=== PATIENT | female | born 1970 | race African-American/Black ===

== ENCOUNTER 2016-12-28 23:21 | Emergency (ER) | payer OTHER ==
--- NOTE | 2016-12-28 23:32 | EDPHY ---
H & P Stated Complaint: midline abd pain x24 hr, vomiting HPI/ROS: HPI CHIEF COMPLAINT: Abdominal pain HISTORY OF PRESENT ILLNESS: This patient very pleasant 46-year-old female no significant medical history does not take any daily medications she presents emergency room with right lower quadrant abdominal pain. Pain started 24 hours ago. It has progressively gotten worse she has had nausea with 3 episodes of nonbilious nonbloody vomiting. No diarrhea. No fever. No urinary symptoms or back pain. Pain is now focally located right lower quadrant however she does tell me that it was localized throughout her abdomen. Dull ache. 10 in 10 at this time. Past Medical History: No significant medical history Past Surgical History: No significant surgical history Social History: Denies daily use of drugs alcohol tobacco products Family History: Noncontributory ROS REVIEW OF SYSTEMS: A comprehensive 10 point review of systems is otherwise negative aside from elements mentioned in the history of present illness. Exam Constitutional triage nursing summary reviewed, vital signs reviewed, awake/ alert. Eyes normal conjunctivae and sclera, EOMI, PERRLA. HENT normal inspection, atraumatic, moist mucus membranes, no epistaxis, neck supple/ no meningismus, no raccoon eyes. Respiratory clear to auscultation bilaterally, normal breath sounds, no respiratory distress, no wheezing. Cardiovascular rate normal, regular rhythm, no murmur, no edema, distal pulses normal. Gastrointestinal soft, mild tender palpation in the right lower quadrant, no rebound, no guarding, normal bowel sounds, no distension, no pulsatile mass. Genitourinary no CVA tenderness. Musculoskeletal no midline vertebral tenderness, full range of motion, no calf swelling, no tenderness of extremities, no meningismus, good pulses, neurovascularly intact. Skin pink, warm, & dry, no rash, skin atraumatic. Neurologic awake, alert and oriented x 3, AAOx3, moves all 4 extremities equally, motor intact, sensory intact, CN II-XII intact, normal cerebellar, normal vision, normal speech. Psychiatric normal mood/affect. Heme/Lymph/Immune no lymphadenopathy. Differential diagnosis includes but is not limited to and in no particular order : Bowel obstruction, appendicitis, gallbladder disease, diverticulitis, colitis , enteritis, perforated viscus, gastritis, GERD, esophagitis, urinary tract infection, pyelonephritis, kidney stones Medical Decision Making: Plan for this patient she will have an IV established obtain blood work should be gently hydrated normal saline, patient received 1 mg IV Dilaudid for pain control, 4 mg IV Zofran for nausea, she will need a CT scan abdomen pelvis with IV contrast rule out acute appendicitis. Re-evaluation: CT scan of the abdomen pelvis with IV contrast. The results of the study are most likely ruptured right ovarian cyst, unable to visualize the appendix, there is no right lower quadrant periappendiceal inflammation or significant inflammation right lower quadrant. The study was read by Dr. Villalpando I viewed the images myself on the PACS system. 0120AM: I did re-evaluate this patient she is resting comfortably she does not want any further pain medicine. 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 Patient getting a pelvic ultrasound to confirm right ovarian cyst. Unable to visualize appendix on CT scan however patient does not have a fever no high white count. Plan for patient is to neck is have a pelvic ultrasound. I did update her on her CT results and that we cannot visualize her appendix however reduce EF fibroid and a most likely complex ruptured ovarian cyst. She is agreeable for pelvic ultrasound. Ultrasound of the pelvis The results of the study are small right ovarian cyst good blood flow to both ovaries I discussed the results of this study with the radiologist Dr. Villalpando 0322AM: Re-examination at this time this patient is resting comfortably no vomiting no fever no guarding\or peritoneal signs. Re-examination her abdomen is soft mild tenderness. She would like to go home. I explained that we did a CAT scan blood work and ultrasound did not visualize her appendix. She does have pain diffusely throughout her abdomen improved now after IV pain medicine here in emergency room also focal tenderness no right lower quadrant unable to visualize the appendix on the CT scan. Do not see right lower quadrant uche appendiceal or right lower quadrant inflammation. She does not have a fever does not have a high white count. I think on appendicitis is unlikely however due to the pain in this area and CT scan unable to visualize her appendix an ultrasound shows a very small right ovarian cyst that I do not feels causing her abdominal pain I explained that I will allow her to go home however if she develops worsening abdominal pain next 12 hours she needs return immediately to the emergency room this includes worsening vomiting, fever, vomiting. I also explained I would like to see her back for abdominal pain recheck in 12-24 hour she understands to return to the emergency room for abdominal pain recheck the other options admitting her overnight for observation however she would like to go home. She does understand me in the emergency room tomorrow night at 10:00 p.m. and she is more welcome to come back for abdominal pain recheck to see me. If worsening abdominal pain fever vomiting she needs return sooner she understands. Source: Patient - Personal History LMP (Females 10-55): 8-14 Days Ago Current Tetanus/Diphtheria Vaccine: Unsure Current Tetanus Diphtheria and Acellular Pertussis (TDAP): Unsure - Medical/Surgical History Hx Asthma: No Hx Chronic Respiratory Disease: No Hx Diabetes: No Hx Cardiac Disease: No Hx Renal Disease: No Hx Cirrhosis: No Hx Alcoholism: No Hx HIV/AIDS: No Hx Splenectomy or Spleen Trauma: No Other PMH: denies - Social History Smoking Status: Never smoked Constitutional: Initial Vital Signs Temperature (C) 36.8 C 12/28/16 23:22 Heart Rate 88 12/28/16 23:22 Respiratory Rate 18 12/28/16 23:22 Blood Pressure 113/74 12/28/16 23:22 O2 Sat (%) 97 12/28/16 23:22 O2 Delivery Mode Room Air Allergies/Adverse Reactions: No Known Allergies Allergy (Unverified 09/28/14 19:29) Home Medications: Medication Instructions Recorded Hydrocodone/APAP 5/325 [[place]io 1 - 2 tab PO Q4H PRN #10 tab 12/29/16 5/325] Medical Decision Making - Data Points Laboratory Results: Laboratory Results 12/28/16 23:35 12/28/16 23:35 12/29/16 12/28/16 12/28/16 01:30 23:35 23:35 WBC RBC Hgb Hct MCV MCH MCHC RDW Plt Count MPV Neut % (Auto) Lymph % (Auto) [place] % (Auto) Eos % (Auto) Baso % (Auto) Nucleat RBC Rel Count Absolute Neuts (auto) Absolute Lymphs (auto) Absolute Monos (auto) Absolute Eos (auto) Absolute Basos (auto) Absolute Nucleated RBC Immature Gran % Immature Gran # PT INR APTT VBG Lactic Acid Sodium 139 mEq/L mEq/L (134-144) Potassium 4.2 mEq/L mEq/L (3.5-5.2) Chloride 104 mEq/L mEq/L (97-110) Carbon Dioxide 22 mEq/l mEq/l (22-31) Anion Gap 13 mEq/L mEq/L (8-16) BUN 7 mg/dL mg/dL (7-23) Creatinine 0.8 mg/dL mg/dL (0.6-1.0) Estimated GFR > 60 Glucose 121 mg/dL H mg/dL (70-100) Calcium 9.7 mg/dL mg/dL (8.5-10.4) Total Bilirubin 1.4 mg/dL mg/dL (0.1-1.4) Conjugated Bilirubin 0.4 mg/dL mg/dL (0.0-0.5) Unconjugated Bilirubin 1.0 mg/dL mg/dL (0.0-1.1) AST 20 IU/L IU/L (14-46) ALT 25 IU/L IU/L (9-52) Alkaline Phosphatase 85 IU/L IU/L (38-126) Total Protein 8.4 g/dL H g/dL (6.3-8.2) Albumin 4.6 g/dL g/dL (3.5-5.0) Lipase 51.0 IU/L IU/L (23-300) Beta HCG, Qual NEGATIVE Urine Color YELLOW Urine Appearance CLEAR Urine pH 5.0 (5.0-7.5) Ur Specific [place] > 1.035 H (1.002-1.030) Urine Protein NEGATIVE (NEGATIVE) Urine Ketones 1+ H (NEGATIVE) Urine Blood 1+ H (NEGATIVE) Urine Nitrate NEGATIVE (NEGATIVE) Urine Bilirubin NEGATIVE (NEGATIVE) Urine Urobilinogen NEGATIVE EU EU (0.2-1.0) Ur Leukocyte Esterase NEGATIVE (NEGATIVE) Urine RBC 3-5 /hpf H /hpf (0-3) Urine WBC 1-3 /hpf /hpf (0-3) Ur Epithelial Cells TRACE /lpf /lpf (NONE-1+) Urine Mucus 1+ /lpf /lpf (NONE-1+) Ur Culture Indicated? NOT INDICATED (NI) Urine Glucose NEGATIVE (NEGATIVE) 12/28/16 12/28/16 12/28/16 23:35 23:35 23:35 WBC 9.17 10^3/uL 10^3/uL (3.80-9.50) RBC 5.02 10^6/uL 10^6/uL (4.18-5.33) Hgb 15.1 g/dL g/dL (12.6-16.3) Hct 44.2 % % (38.0-47.0) MCV 88.0 fL fL (81.5-99.8) MCH 30.1 pg pg (27.9-34.1) MCHC 34.2 g/dL g/dL (32.4-36.7) RDW 14.5 % % (11.5-15.2) Plt Count 344 10^3/uL 10^3/uL (150-400) MPV 10.1 fL fL (8.7-11.7) Neut % (Auto) 75.9 % H % (39.3-74.2) Lymph % (Auto) 14.5 % L % (15.0-45.0) [place] % (Auto) 8.8 % % (4.5-13.0) Eos % (Auto) 0.2 % L % (0.6-7.6) Baso % (Auto) 0.3 % % (0.3-1.7) Nucleat RBC Rel Count 0.0 % % (0.0-0.2) Absolute Neuts (auto) 6.95 10^3/uL H 10^3/uL (1.70-6.50) Absolute Lymphs (auto) 1.33 10^3/uL 10^3/uL (1.00-3.00) Absolute Monos (auto) 0.81 10^3/uL H 10^3/uL (0.30-0.80) Absolute Eos (auto) 0.02 10^3/uL L 10^3/uL (0.03-0.40) Absolute Basos (auto) 0.03 10^3/uL 10^3/uL (0.02-0.10) Absolute Nucleated RBC 0.00 10^3/uL 10^3/uL (0-0.01) Immature Gran % 0.3 % % (0.0-1.1) Immature Gran # 0.03 10^3/uL 10^3/uL (0.00-0.10) PT 13.2 SEC SEC (12.0-15.0) INR 1.01 (0.83-1.16) APTT 31.8 SEC SEC (23.0-38.0) VBG Lactic Acid 2.0 mmol/L mmol/L (0.7-2.1) Sodium Potassium Chloride Carbon Dioxide Anion Gap BUN Creatinine Estimated GFR Glucose Calcium Total Bilirubin Conjugated Bilirubin Unconjugated Bilirubin AST ALT Alkaline Phosphatase Total Protein Albumin Lipase Beta HCG, Qual Urine Color Urine Appearance Urine pH Ur Specific [place] Urine Protein Urine Ketones Urine Blood Urine Nitrate Urine Bilirubin Urine Urobilinogen Ur Leukocyte Esterase Urine RBC Urine WBC Ur Epithelial Cells Urine Mucus Ur Culture Indicated? Urine Glucose Medications Given: Discontinued Medications Hydromorphone HCl (Dilaudid) 1 mg IVP EDNOW ONE Stop: 12/28/16 23:43 Last Admin: 12/28/16 23:50 Dose: 1 mg Hydromorphone HCl (Dilaudid) 1 mg IVP EDNOW ONE Stop: 12/29/16 01:23 Last Admin: 12/29/16 01:33 Dose: 1 mg Sodium Chloride (Ns) 1,000 mls @ 0 mls/hr IV ONCE ONE PRN Reason: Wide Open Stop: 12/28/16 23:43 Last Admin: 12/28/16 23:50 Dose: 1,000 mls Sodium Chloride (Ns) 1,000 mls @ 0 mls/hr IV ONCE ONE PRN Reason: Wide Open Stop: 12/29/16 00:46 Last Admin: 12/29/16 00:56 Dose: 1,000 mls Ondansetron HCl (Zofran) 4 mg IVP EDNOW ONE Stop: 12/28/16 23:43 Last Admin: 12/28/16 23:50 Dose: 4 mg Departure - Departure Disposition: Home, Routine, Self-Care Clinical Impression: Ovarian cyst Qualifiers: Laterality: right Qualified Code(s): N83.201 - Unspecified ovarian cyst, right side Abdominal pain Qualifiers: Abdominal location: right lower quadrant Qualified Code(s): R10.31 - Right lower quadrant pain Condition: Good Instructions: Ovarian Cyst (ED) Additional Instructions: 1. Return emergency room immediately if he developed worsening abdominal pain fever or vomiting. 2. I would like to see you back in the emergency room in 12-24 hours for abdominal pain recheck. However return if your worse. 3. remember we could not visualize her appendix on your CT scan you do have a small ovarian cyst on right ovary I am unsure if this is actually causing her abdominal pain. Return to the emergency room tomorrow for recheck come back sooner if you have worsening abdominal pain fever or vomiting. Referrals: Sylvia Solano MD [Primary Care Provider] - As per Instructions Chelly Balderas DO [Doctor of Osteopathy] - As per Instructions Prescriptions: Hydrocodone/APAP 5/325 [Carpio 5/325] 1 - 2 tab PO Q4H PRN #10 tab PRN Reason: Pain, Moderate
[2016-12-28] MEDS ORDERED: HYDROmorphONE/DILAUDID 1 MG/ML SYR IVP ONE (23:42)
[2016-12-28] MEDS ORDERED: NS 1,000 ML IV ONE (23:42)
[2016-12-28] MEDS ORDERED: ONDANSETRON 4 MG/2 ML VIAL IVP ONE (23:42)
[2016-12-28 23:48] LABS: % IMMATURE GRANULYOCYTES 0.3 % (0.0-1.1); ABSOLUTE IMMATURE GRANULOCYTES 0.03 10^3/uL (0.00-0.10); ADD DIFF? NO; ADD MORPH? NO; ADD SCAN? NO; ATYPICAL LYMPHOCYTE FLAG 10 (0-99); FRAGMENT RBC FLAG 0 (0-99); HEMATOCRIT 44.2 % (38.0-47.0); HEMOGLOBIN 15.1 g/dL (12.6-16.3); LEFT SHIFT FLG 0 (0-99); LIPEMIA HEMOLYSIS FLAG 90 (0-99); MEAN CELL HEMOGLOBIN 30.1 pg (27.9-34.1); MEAN CELL HEMOGLOBIN CONCENTR. 34.2 g/dL (32.4-36.7); MEAN PLATELET VOLUME 10.1 fL (8.7-11.7); PLATELET CLUMPS FLAG 0 (0-99); PLATELET COUNT 344 10^3/uL (150-400); RED BLOOD CELL COUNT 5.02 10^6/uL (4.18-5.33); RED CELL DISTRIBUTION WIDTH 14.5 % (11.5-15.2)
[2016-12-29 00:08] LABS: APTT 31.8 SEC (23.0-38.0); INR 1.01 (0.83-1.16); PROTIME(PATIENT) 13.2 SEC (12.0-15.0)
[2016-12-29] MEDS ORDERED: IOPAMIDOL (ISOVUE-300) 100 ML BTL IV ONE (00:29)
[2016-12-29 00:32] VITALS: RESP 16
[2016-12-29 00:34] LABS: ALANINE AMINOTRANSFERASE 25 IU/L (9-52); ALBUMIN 4.6 g/dL (3.5-5.0); ALKALINE PHOSPHATASE 85 IU/L (38-126); ANION GAP 13 mEq/L (8-16); ASPARTATE AMINOTRANSFERASE 20 IU/L (14-46); BILIRUBIN,TOTAL 1.4 mg/dL (0.1-1.4); BILIRUBIN-CONJUGATED 0.4 mg/dL (0.0-0.5); CALCIUM 9.7 mg/dL (8.5-10.4); CARBON DIOXIDE 22 mEq/l (22-31); CHLORIDE 104 mEq/L (97-110); CREATININE 0.8 mg/dL (0.6-1.0); GLOMERULAR FILTRATION RATE > 60; GLUCOSE 121 mg/dL (70-100); POTASSIUM 4.2 mEq/L (3.5-5.2); SODIUM 139 mEq/L (134-144); TOTAL PROTEIN 8.4 g/dL (6.3-8.2)
[2016-12-29] MEDS ORDERED: NS 1,000 ML IV ONE (00:45)
[2016-12-29 00:57] VITALS: O2SAT 96
[2016-12-29] MEDS ORDERED: HYDROmorphONE/DILAUDID 1 MG/ML SYR IVP ONE (01:22)
[2016-12-29] MEDS ORDERED: HYDROmorphONE/DILAUDID 1 MG/ML SYR ONE (01:23)
[2016-12-29 01:39] LABS: COLOR YELLOW; LEUKOCYTE ESTERASE,URINE NEGATIVE (NEGATIVE); NITRITE,URINE NEGATIVE (NEGATIVE)
[2016-12-29 01:53] LABS: MUCUS 1+ /lpf (NONE-1+)
[2016-12-29] MEDS ORDERED: HYDROCOD/APAP 5/325 PREPACK#6 BTL TAKEHOME ONE (03:26)
[2016-12-29 03:37] VITALS: BP 110/68; PULSE 60; TEMP 97.9
== END 2016-12-29 03:37 | disposition home or self-care (01) ==
DX: N83.201 Unspecified ovarian cyst, right side (principal)
CPT/HCPCS: 96374; J1170; J2405; Q9967

== ENCOUNTER 2016-12-29 23:03 | Observation (INO) | payer OTHER ==
--- NOTE | 2016-12-29 23:09 | EDPHY ---
H & P Stated Complaint: continued abd pain worse on R side, here for recheck HPI/ROS: HPI CHIEF COMPLAINT: Abdominal pain seen here yesterday HISTORY OF PRESENT ILLNESS: This patient very pleasant 46-year-old female seen by myself yesterday for abdominal pain at that time she had a CT scan and pelvic ultrasound showed a small right ovarian cyst otherwise unremarkable exam , normal blood work at that time, they are unable to visualize her appendix. I explained to the patient that will allow her to go home given that she had normal blood work she was not vomiting she had no fever and her imaging studies were reassuring septic we could not visualize her appendix. I recommend that she come back for recheck in 24 hours or come back sooner if she was worse. She tells me she did not really have any worsening abdominal pain today but her pain is persisted and is still focally located in right lower quadrant. She now presents back to the emergency room 24 hours later with ongoing abdominal pain. It is noted she has not had any fever she has not been vomiting she does have decreased appetite, she does endorse nausea, she did have flatus today but no bowel movement. She tells me she has not been eating she did take ibuprofen for pain control and did get somewhat help. She did not take any of the Vicodin I previously prescribed.Currently she tells me her pain is diffuse all over abdomen 7/10 but most focally tender right lower quadrant. Patient also tells me she feels her abdomen is distended and bloated. Denies chest pain shortness of breath or pleuritic pain. Past Medical History: No significant medical history Past Surgical History: No significant surgical history Social History: denies daily use of drugs alcohol tobacco products Family History: Noncontributory ROS REVIEW OF SYSTEMS: A comprehensive 10 point review of systems is otherwise negative aside from elements mentioned in the history of present illness. Exam Constitutional triage nursing summary reviewed, vital signs reviewed, awake/ alert. Eyes normal conjunctivae and sclera, EOMI, PERRLA. HENT normal inspection, atraumatic, moist mucus membranes, no epistaxis, neck supple/ no meningismus, no raccoon eyes. Respiratory clear to auscultation bilaterally, normal breath sounds, no respiratory distress, no wheezing. Cardiovascular rate normal, regular rhythm, no murmur, no edema, distal pulses normal. Gastrointestinal soft, tender palpation diffusely there is no peritoneal signs , focally tender right lower quadrant,, no rebound, no guarding, normal bowel sounds, no distension, no pulsatile mass. Genitourinary no CVA tenderness. Musculoskeletal no midline vertebral tenderness, full range of motion, no calf swelling, no tenderness of extremities, no meningismus, good pulses, neurovascularly intact. Skin pink, warm, & dry, no rash, skin atraumatic. Neurologic awake, alert and oriented x 3, AAOx3, moves all 4 extremities equally, motor intact, sensory intact, CN II-XII intact, normal cerebellar, normal vision, normal speech. Psychiatric normal mood/affect. Heme/Lymph/Immune no lymphadenopathy. Differential diagnosis includes but is not limited to and in no particular order : Acute appendicitis, Bowel obstruction, gallbladder disease, diverticulitis, colitis, enteritis, perforated viscus, gastritis, GERD, esophagitis, urinary tract infection, pyelonephritis, kidney stones Medical Decision Making: plan for this patient IV establishment, blood work including abdominal labs repeat CBC, she will need a CT scan abdomen pelvis with IV contrast and p. o. contrast to help delineate her appendix. Re-evaluation: CT scan of the abdomen pelvis with IV contrast. The results of the study are this shows acute appendicitis, appendix as a pedicle within it distally, there is inflammatory changes around the appendix concerning for early appendicitis. The study was read by Dr. Toscano. I viewed the images myself on the PACS system. 0139: I have consulted surgery Dr. Veras this patient's acute appendicitis seen on CT scan. I did update patient. We went over CT results and blood work results.she understands she is given a sizable need surgery to remove her appendix. Source: Patient - Personal History Current Tetanus/Diphtheria Vaccine: Unsure Current Tetanus Diphtheria and Acellular Pertussis (TDAP): Unsure - Medical/Surgical History Hx Asthma: No Hx Chronic Respiratory Disease: No Hx Diabetes: No Hx Cardiac Disease: No Hx Renal Disease: No Hx Cirrhosis: No Hx Alcoholism: No Hx HIV/AIDS: No Hx Splenectomy or Spleen Trauma: No Other PMH: denies - Social History Smoking Status: Never smoked Constitutional: Initial Vital Signs Temperature (C) 36.8 C 12/29/16 23:07 Heart Rate 86 12/29/16 23:07 Respiratory Rate 16 12/29/16 23:07 Blood Pressure 107/61 12/29/16 23:07 O2 Sat (%) 99 12/29/16 23:07 O2 Delivery Mode Room Air Allergies/Adverse Reactions: No Known Allergies Allergy (Unverified 09/28/14 19:29) Home Medications: Medication Instructions Recorded Hydrocodone/APAP [[place] 1 - 2 tab PO Q4H PRN #10 tab 12/29/16 5325] Medical Decision Making - Data Points Laboratory Results: Laboratory Results 12/29/16 23:30 12/29/16 23:30 12/29/16 12/29/16 12/29/16 23:30 23:30 23:30 WBC 9.84 10^3/uL H 10^3/uL (3.80-9.50) RBC 4.29 10^6/uL 10^6/uL (4.18-5.33) Hgb 12.9 g/dL g/dL (12.6-16.3) Hct 38.0 % % (38.0-47.0) MCV 88.6 fL fL (81.5-99.8) MCH 30.1 pg pg (27.9-34.1) MCHC 33.9 g/dL g/dL (32.4-36.7) RDW 14.4 % % (11.5-15.2) Plt Count 255 10^3/uL D 10^3/uL (150-400) MPV 10.4 fL fL (8.7-11.7) Neut % (Auto) 84.7 % H % (39.3-74.2) Lymph % (Auto) 9.6 % L % (15.0-45.0) [place] % (Auto) 4.7 % % (4.5-13.0) Eos % (Auto) 0.5 % L % (0.6-7.6) Baso % (Auto) 0.2 % L % (0.3-1.7) Nucleat RBC Rel Count 0.0 % % (0.0-0.2) Absolute Neuts (auto) 8.34 10^3/uL H 10^3/uL (1.70-6.50) Absolute Lymphs (auto) 0.94 10^3/uL L 10^3/uL (1.00-3.00) Absolute Monos (auto) 0.46 10^3/uL 10^3/uL (0.30-0.80) Absolute Eos (auto) 0.05 10^3/uL 10^3/uL (0.03-0.40) Absolute Basos (auto) 0.02 10^3/uL 10^3/uL (0.02-0.10) Absolute Nucleated RBC 0.00 10^3/uL 10^3/uL (0-0.01) Immature Gran % 0.3 % % (0.0-1.1) Immature Gran # 0.03 10^3/uL 10^3/uL (0.00-0.10) VBG Lactic Acid 1.0 mmol/L D mmol/L (0.7-2.1) Sodium 140 mEq/L mEq/L (134-144) Potassium 4.0 mEq/L mEq/L (3.5-5.2) Chloride 108 mEq/L mEq/L (97-110) Carbon Dioxide 22 mEq/l mEq/l (22-31) Anion Gap 10 mEq/L mEq/L (8-16) BUN 6 mg/dL L mg/dL (7-23) Creatinine 0.7 mg/dL mg/dL (0.6-1.0) Estimated GFR > 60 Glucose 130 mg/dL H mg/dL (70-100) Calcium 8.8 mg/dL mg/dL (8.5-10.4) Total Bilirubin 1.2 mg/dL mg/dL (0.1-1.4) Conjugated Bilirubin 0.4 mg/dL mg/dL (0.0-0.5) Unconjugated Bilirubin 0.8 mg/dL mg/dL (0.0-1.1) AST 17 IU/L IU/L (14-46) ALT 19 IU/L IU/L (9-52) Alkaline Phosphatase 62 IU/L IU/L (38-126) Total Protein 7.0 g/dL g/dL (6.3-8.2) Albumin 3.7 g/dL g/dL (3.5-5.0) Lipase 25.0 IU/L IU/L (23-300) Medications Given: Discontinued Medications Hydromorphone HCl (Dilaudid) 1 mg IVP EDNOW ONE Stop: 12/29/16 23:21 Last Admin: 12/29/16 23:35 Dose: 1 mg Sodium Chloride (Ns) 1,000 mls @ 0 mls/hr IV ONCE ONE PRN Reason: Wide Open Stop: 12/29/16 23:21 Last Admin: 12/29/16 23:30 Dose: 1,000 mls Ertapenem 1 gm/ Sodium (Chloride) 100 mls @ 200 mls/hr IV EDNOW ONE PRN Reason: Protocol Stop: 12/30/16 01:35 Last Admin: 12/30/16 01:29 Dose: 100 mls Ondansetron HCl (Zofran) 4 mg IVP EDNOW ONE Stop: 12/29/16 23:21 Last Admin: 12/29/16 23:35 Dose: 4 mg Departure - Departure Disposition: [facility] Acute Clinical Impression: Acute appendicitis Qualifiers: Acute appendicitis type: with localized peritonitis Qualified Code(s): K35.3 - Acute appendicitis with localized peritonitis Condition: Good
[2016-12-29] MEDS ORDERED: NS 1,000 ML IV ONE (23:20)
[2016-12-29] MEDS ORDERED: HYDROmorphONE/DILAUDID 1 MG/ML SYR IVP ONE (23:20)
[2016-12-29] MEDS ORDERED: ONDANSETRON 4 MG/2 ML VIAL IVP ONE (23:20)
[2016-12-29 23:51] LABS: % IMMATURE GRANULYOCYTES 0.3 % (0.0-1.1); ABSOLUTE IMMATURE GRANULOCYTES 0.03 10^3/uL (0.00-0.10); ADD DIFF? NO; ADD MORPH? NO; ADD SCAN? NO; ATYPICAL LYMPHOCYTE FLAG 0 (0-99); FRAGMENT RBC FLAG 0 (0-99); HEMOGLOBIN 12.9 g/dL (12.6-16.3); LEFT SHIFT FLG 0 (0-99); LIPEMIA HEMOLYSIS FLAG 90 (0-99); MEAN CELL HEMOGLOBIN 30.1 pg (27.9-34.1); MEAN CELL HEMOGLOBIN CONCENTR. 33.9 g/dL (32.4-36.7); MEAN CELL VOLUME 88.6 fL (81.5-99.8); MEAN PLATELET VOLUME 10.4 fL (8.7-11.7); PLATELET CLUMPS FLAG 0 (0-99); PLATELET COUNT 255 10^3/uL (150-400); RED BLOOD CELL COUNT 4.29 10^6/uL (4.18-5.33); RED CELL DISTRIBUTION WIDTH 14.4 % (11.5-15.2)
[2016-12-30 00:12] LABS: ALANINE AMINOTRANSFERASE 19 IU/L (9-52); ALBUMIN 3.7 g/dL (3.5-5.0); ALKALINE PHOSPHATASE 62 IU/L (38-126); ANION GAP 10 mEq/L (8-16); ASPARTATE AMINOTRANSFERASE 17 IU/L (14-46); BILIRUBIN,TOTAL 1.2 mg/dL (0.1-1.4); BILIRUBIN-CONJUGATED 0.4 mg/dL (0.0-0.5); BILIRUBIN-UNCONJUGATED 0.8 mg/dL (0.0-1.1); CALCIUM 8.8 mg/dL (8.5-10.4); CARBON DIOXIDE 22 mEq/l (22-31); CHLORIDE 108 mEq/L (97-110); CREATININE 0.7 mg/dL (0.6-1.0); GLOMERULAR FILTRATION RATE > 60; GLUCOSE 130 mg/dL (70-100); SODIUM 140 mEq/L (134-144)
[2016-12-30] MEDS ORDERED: IOPAMIDOL (ISOVUE-300) 100 ML BTL IV ONE (00:19)
[2016-12-30] MEDS ORDERED: ERTAPENEM 1 GM in NS 100 ML IV ONE (01:06)
[2016-12-30] MEDS ORDERED: NS 1,000 ML IV ONE (01:23)
--- NOTE | 2016-12-30 01:41 | SOAPPROG ---
SOAP Progress Note Assessment/Plan: Assessment: 46 female admit with acute appe/ +on ct/ wbc 10k/ afebrile abd tender rlq with rebound phx - meds- all-/ ros- risks and options fully discussed Plan:lap appe 12/30/16 01:39 Objective: Vital Signs Temp Pulse Resp BP Pulse Ox 36.8 C 86 16 107/61 99 12/29/16 23:07 12/29/16 23:07 12/29/16 23:07 12/29/16 23:07 12/29/16 23:07 ICD10 Worksheet Patient Problems: Problems Problem Status Onset Acute appendicitis Acute
[2016-12-30] MEDS ORDERED: ONDANSETRON 4 MG/2 ML VIAL IVP PRN (01:42)
[2016-12-30] MEDS ORDERED: HYDROmorphONE/DILAUDID 1 MG/ML SYR IVP PRN (01:42)
[2016-12-30] MEDS ORDERED: HYDROCODONE/APAP 5/325 TAB PO PRN (01:42)
--- NOTE | 2016-12-30 02:14 | GHP ---
[f rep st] PREOP HISTORY AND PHYSICAL DATE OF ADMISSION: 12/30/2016 HISTORY OF PRESENT ILLNESS: A 46-year-old female, who was seen in the ER on the second night in a r ow with abdominal pain. White count is 10,000. Her CT scan reveals appendicitis with a fecalith, c onsistent with her right lower quadrant tenderness and pain. Admitted at this time for laparoscopic appendectomy. Risks and options have been fully discussed, including alternate diagnosis, conversi on to an open procedure, and other problems, and she requests that we proceed. She has had no diarr hea, only a small amount of vomiting, and no major fever. PAST MEDICAL HISTORY: Negative for major hospitalizations or surgeries. REVIEW OF SYSTEMS: Reveals no major medical problems on a full 10-point review of systems. SOCIAL HISTORY: She does not smoke. FAMILY HISTORY: Noncontributory. PHYSICAL EXAMINATION: GENERAL: An alert, cooperative 46-year-old female, who is in no acute distre ss. HEAD and NECK: No icterus or adenopathy. No thyromegaly. CHEST: Clear and symmetric. CARDI AC: Regular rhythm. ABDOMEN: Soft. She has some diffuse abdominal tenderness, but definite tende rness in the right lower quadrant with some guarding and rebound. There are no hernias. Bowel soun ds are positive. EXTREMITIES: Benign with full pulses. IMPRESSION: Acute appendicitis. PLAN: Admit for laparoscopic appendectomy. Risks and options have been fully discussed, and she wi shes to proceed. /[id number]/MODL
[2016-12-30] MEDS ORDERED: MIDAZOLAM 2 MG/2 ML VIAL ONE (03:44)
[2016-12-30] MEDS ORDERED: BUPIVACAINE 0.5% 30 ML SDV ONE (03:47)
[2016-12-30] MEDS ORDERED: LIDOCAINE 2% 5 ML SDV ONE (04:01)
[2016-12-30] MEDS ORDERED: fentaNYL 100 MCG/2 ML INJ ONE ×2 (04:01→04:33)
[2016-12-30] MEDS ORDERED: PROPOFOL 200 MG/20 ML VIAL ONE (04:01)
[2016-12-30] MEDS ORDERED: ROCURONIUM 50 MG/5 ML VIAL ONE (04:01)
[2016-12-30] MEDS ORDERED: DEXAMETHASONE 4 MG/ML VIAL ONE (04:01)
--- NOTE | 2016-12-30 05:08 | POSTOPPROG ---
Post Op Note Date of Operation: 12/30/16 Surgeon: Kev Veras Anesthesiologist: warm Anesthesia: GET(General Endotracheal) Pre-op Diagnosis: acute appendicitis Post-op Diagnosis: perforated appendicitis Indication: pain Procedure: lap appe Findings: necrotic distal appendix with localized perforation Inf/Abcess present in the surg proc area at time of surgery?: Yes Depth: Organ Space EBL: Minimal Complications: 0 Specimen(s): appendix
--- NOTE | 2016-12-30 05:28 | GOP ---
[f rep st] OPERATIVE REPORT DATE OF OPERATION: SURGEON: Kev Veras MD TOBACCO SAMPLER: There was no actuarial assistant. ANESTHESIOLOGIST: Dr. Whalen. PREOPERATIVE DIAGNOSIS: Acute appendicitis. POSTOPERATIVE DIAGNOSIS: Perforated appendix. PROCEDURE PERFORMED: Laparoscopic appendectomy. FINDINGS: The patient was found to have a completely necrotic distal 3rd of the appendix with a loc alized perforation. ESTIMATED BLOOD LOSS: Negligible. DESCRIPTION OF PROCEDURE: Patient was taken to the operating room where she received satisfactory g eneral endotracheal anesthesia by Dr. Whalen. Placed in prone position, prepped and draped in the usu al sterile fashion. Infraumbilical incision was made. A Veress needle inserted. Pneumoperitoneum was established. Tro car was introduced. Laparoscope introduced. Good visualization was obtained. Two other trocars we re placed in the midline under direct vision. The cecum was rotated medially, and the appendix was freed up. It was markedly adherent to the ilium. This was carefully freed up without rupturing the appendix. The mesoappendix was divided with the Harmonic Scalpel until the base was skeletonized. It was divided with Endo-JOHNATHAN stapler, placed in the specimen bag and extracted through the upper mi dline port site. The wound was irrigated. Hemostasis was assured. Trocars were removed under dire ct vision. Trocar sites were closed with 0 Vicryl for the fascia and 4-0 Monocryl subcuticular stit ch for the skin. All layers infiltrated with Marcaine. DISPOSITION: She was taken to the recovery room in good condition. COMPLICATIONS: There were no complications. /[id number]/MODL
[2016-12-30] MEDS: KETOROLAC 15 MG/1 ML SDV IVP SCH ×2 (05:41→13:39)
[2016-12-30] MEDS: D5W 1/2 NS W/ 20 KCl/L 1,000 ML IV SCH ×2 (05:53→14:50)
[2016-12-30 07:50] VITALS: BP 105/62; PULSE 66; RESP 18; TEMP 98.1; O2SAT 99
--- NOTE | 2016-12-30 08:11 | SOAPPROG ---
SOAP Progress Note Assessment/Plan: Assessment: 46 female admit with acute appe/ +on ct/ wbc 10k/ afebrile abd tender rlq with rebound phx - meds- all-/ ros- risks and options fully discussed Plan:lap appe 12/30/16 01:39 12/30/16 08:03 doing well postop / hopefully home later today on oral antibiotics / wounds okay Objective: Vital Signs Temp Pulse Resp BP Pulse Ox 36.7 C 66 18 105/62 99 12/30/16 07:49 12/30/16 07:49 12/30/16 07:49 12/30/16 07:49 12/30/16 07:49 12/29/16 12/30/16 12/31/16 05:59 05:59 05:59 Intake Total 3300 Output Total 10 Balance 3290 ICD10 Worksheet Patient Problems: Problems Problem Status Onset Acute appendicitis Acute
--- NOTE | 2016-12-30 08:54 | SOAPPROG ---
SOAP Progress Note Assessment/Plan: Assessment: S/P lap appy. No flatus yet. Using IV pain meds Sitting up in bed, abdomen distended, hypoactive If ambulates, pain controlled and tolerates diet, dc home late today otherwise likely tomorrow Plan: 12/30/16 08:47 Objective: Vital Signs Temp Pulse Resp BP Pulse Ox 36.7 C 66 18 105/62 99 12/30/16 07:49 12/30/16 07:49 12/30/16 07:49 12/30/16 07:49 12/30/16 07:49 12/29/16 12/30/16 12/31/16 05:59 05:59 05:59 Intake Total 3300 Output Total 10 Balance 3290 ICD10 Worksheet Patient Problems: Problems Problem Status Onset Acute appendicitis Acute
[2016-12-30] MEDS ORDERED: ERTAPENEM 1 GM in NS 100 ML IV SCH (09:00)
== END 2016-12-30 17:09 | disposition home or self-care (01) ==
LOC: INTOOBSV 12-30 01:13 → F1N 12-30 05:36
PROVIDERS: ADMIT Surgery; ATTEND Surgery
PROC: 0DTJ4ZZ Resection of Appendix, Percutaneous Endoscopic Approach (ICD-10-PCS; principal; 2016-12-30 03:58)
DX: K35.2 Acute appendicitis with generalized peritonitis (principal)
CPT/HCPCS: 44970; 74177; 96361; 96365; 96375; 99285; G0378; J1100; J1170; J1335; J1885; J2250; J2405; J2704; J3010; Q9967

== ENCOUNTER 2017-01-19 14:05 | Observation (INO) | payer OTHER ==
[2017-01-19 14:13] VITALS: RESP 16
[2017-01-19] MEDS ORDERED: ONDANSETRON 4 MG/2 ML VIAL ONE ×2 (14:22→17:29)
[2017-01-19] MEDS ORDERED: HYDROmorphONE/DILAUDID 1 MG/ML SYR ONE (14:22)
--- NOTE | 2017-01-19 14:30 | EDPHY ---
H & P Stated Complaint: Diffuse abdominal pain x 3 days. Appy 2 weeks ago. Sent to R /O abcess Time Seen by Provider: 01/19/17 14:23 HPI/ROS: CHIEF COMPLAINT: abdominal pain HISTORY OF PRESENT ILLNESS: 46-year-old female presents emergency department sent from Dr. Sunshine office for evaluation for postoperative abscess. Patient had an appendectomy 3 weeks ago, this was perforated, she was sent home on an antibiotic that she took for 5 days, finishing this 2 weeks ago. Patient reports the last 3 days she has had very mild intermittent abdominal pain. Today she ate lunch and had sudden onset sharp abdominal pain, felt like she needed to have a bowel movement, went on the toilet and her pain increased. Patient reports her pain is severe, constant, sharp in nature. No nausea or vomiting, no fevers. No back pain, no urinary urgency, frequency or dysuria, no diarrhea. REVIEW OF SYSTEMS: A comprehensive 10 point review of systems is otherwise negative aside from elements mentioned in the history of present illness. Source: Patient Exam Limitations: No limitations - Personal History LMP (Females 10-55): 8-14 Days Ago Current Tetanus/Diphtheria Vaccine: Yes Current Tetanus Diphtheria and Acellular Pertussis (TDAP): Yes - Medical/Surgical History Hx Asthma: No Hx Chronic Respiratory Disease: No Hx Diabetes: No Hx Cardiac Disease: No Hx Renal Disease: No Hx Cirrhosis: No Hx Alcoholism: No Hx HIV/AIDS: No Hx Splenectomy or Spleen Trauma: No Other PMH: Appendectomy 12/30/2016 - Social History Smoking Status: Never smoked - Physical Exam Exam: Physical Exam Gen: Alert and Oriented, tearful, tachypneic HEENT: PERRL, moist mucous membranes NECK: no meningismus CV: regular rate and regular rhythm PULM: CTAB, no wheezes ABDOMEN: soft, periumbilical and right-sided tenderness to palpation BACK: No CVA tenderness NEURO: Neurologically grossly intact EXTREMITIES: normal appearing SKIN: no rash or break in skin on exposed skin PSYCH: answers questions appropriately. Constitutional: Initial Vital Signs Temperature (C) 36.4 C 01/19/17 14:10 Heart Rate 87 01/19/17 14:10 Respiratory Rate 16 01/19/17 14:10 Blood Pressure 132/110 H 01/19/17 14:10 O2 Sat (%) 100 01/19/17 14:10 O2 (L/minute) 2 Allergies/Adverse Reactions: No Known Allergies Allergy (Unverified 09/28/14 19:29) Home Medications: Medication Instructions Recorded Herbals/Supplements -Info Only 1 ea PO DAILY 01/19/17 Multivitamins [Multivitamin (*)] 1 each PO DAILY 01/19/17 Vitamin B Complex [B Complex] 1 each PO DAILY 01/19/17 Medical Decision Making ED Course/Re-evaluation: IV established, CBC, i-STAT and CT abdomen pelvis with IV contrast ordered. Patient is given 1 mg of Dilaudid and 4 mg of Zofran intravenously for severe pain. Patient is afebrile, reports her pain is 10/10. 4pm- CBC is unremarkable, chemistry panel is normal, CT abdomen pelvis shows no evidence of free fluid or abscess. Patient continues with periumbilical and right-sided abdominal tenderness to palpation. Her pain is improved down to 5 /10. Patient will be admitted to Dr. Easley for observation. pelvic ultrasound ordered, urinalysis pending. - Data Points Laboratory Results: Laboratory Results 01/19/17 14:26 Medications Given: Discontinued Medications Hydromorphone HCl (Dilaudid) 2 mg IVP EDNOW ONE Stop: 01/19/17 14:41 Last Admin: 01/19/17 14:42 Dose: 2 mg Hydromorphone HCl (Dilaudid) 0.2 - 0.4 mg IVP Q1 PRN PRN Reason: Pain, Severe Unable to Take PO Stop: 01/29/17 16:14 Last Admin: 01/19/17 18:49 Dose: 0.4 mg Sodium Chloride (Ns) 1,000 mls @ 3,000 mls/hr IV ONCE ONE Stop: 01/19/17 14:59 Last Admin: 01/19/17 14:43 Dose: 1,000 mls Potassium Chloride/Sodium Chloride (Ns W/ 20 Kcl/L) 1,000 mls @ 75 mls/hr IV CONT SUASN Stop: 07/18/17 16:14 Last Admin: 01/19/17 18:16 Dose: 1,000 mls Ondansetron HCl (Zofran) 4 mg IVP EDNOW ONE Stop: 01/19/17 14:41 Last Admin: 01/19/17 14:47 Dose: 4 mg Departure - Departure Disposition: [facility] Acute Clinical Impression: Abdominal pain Qualifiers: Abdominal location: right lower quadrant Qualified Code(s): R10.31 - Right lower quadrant pain Condition: Good
[2017-01-19 14:35] LABS: % IMMATURE GRANULYOCYTES 0.2 % (0.0-1.1); ABSOLUTE IMMATURE GRANULOCYTES 0.01 10^3/uL (0.00-0.10); ADD DIFF? NO; ADD MORPH? NO; ADD SCAN? NO; ATYPICAL LYMPHOCYTE FLAG 70 (0-99); FRAGMENT RBC FLAG 0 (0-99); HEMATOCRIT 42.5 % (38.0-47.0); HEMOGLOBIN 14.3 g/dL (12.6-16.3); LEFT SHIFT FLG 0 (0-99); LIPEMIA HEMOLYSIS FLAG 80 (0-99); MEAN CELL HEMOGLOBIN 29.7 pg (27.9-34.1); MEAN CELL HEMOGLOBIN CONCENTR. 33.6 g/dL (32.4-36.7); MEAN CELL VOLUME 88.2 fL (81.5-99.8); PLATELET CLUMPS FLAG 20 (0-99); PLATELET COUNT 379 10^3/uL (150-400); RED BLOOD CELL COUNT 4.82 10^6/uL (4.18-5.33); RED CELL DISTRIBUTION WIDTH 13.7 % (11.5-15.2)
[2017-01-19] MEDS ORDERED: HYDROmorphONE/DILAUDID 1 MG/ML SYR IVP ONE (14:40)
[2017-01-19] MEDS ORDERED: ONDANSETRON 4 MG/2 ML VIAL IVP ONE (14:40)
[2017-01-19] MEDS ORDERED: NS 1,000 ML IV ONE (14:40)
[2017-01-19] MEDS ORDERED: IOPAMIDOL (ISOVUE-300) 100 ML BTL IV ONE (14:51)
[2017-01-19] MEDS ORDERED: NS W/ 20 KCl/L 1,000 ML IV SCH (16:15)
[2017-01-19] MEDS ORDERED: ACETAMINOPHEN 325 MG TAB PO PRN (16:15)
[2017-01-19] MEDS ORDERED: ONDANSETRON 4 MG/2 ML VIAL IVP PRN (16:15)
[2017-01-19] MEDS ORDERED: HYDROmorphONE/DILAUDID 1 MG/ML SYR IVP PRN (16:15)
[2017-01-19] MEDS ORDERED: HYDROCODONE/APAP 5/325 TAB PO PRN (16:23)
--- NOTE | 2017-01-19 16:44 | GHP ---
[f rep st] HISTORY AND PHYSICAL DATE OF ADMISSION: 01/19/2017 CHIEF COMPLAINT: Abdominal pain. HISTORY OF PRESENT ILLNESS: The patient is a 46-year-old female who had a laparoscopic appendectomy for a perforated necrotic appendix on December 30, 2016, with Dr. Kev Veras. The procedure was unc omplicated and she tolerated it well. Of note, 2 days prior to this, she reported to the ER and had no fever, no white count and no CT findings to diagnose appendicitis. She was sent home and return ed to the ER with ongoing symptoms. The patient was seen in an outpatient setting and was doing well about a week ago. She woke up this morning with lower abdominal pain. It has been worsening throughout the day and so she was seen in our office. As she was in intolerable pain, we sent her to the emergency department for IV access, pain medicines and further care. She had a CT scan today which showed no evidence of abscess. Of note, it does show an unchanged fibroid in the uterus and some unchanged ovarian cysts. She has bee n afebrile and she has a normal white blood cell count of 5.3. Her pain is currently controlled wit h IV pain medicines but she can feel them wearing off right now and knows that she has ongoing pain. She denies nausea, vomiting, diarrhea, or constipation. She denies fevers and chills. She had a bowel movement about a half hour prior to her office visit earlier today, and she has been eating no rmally. PAST MEDICAL HISTORY AND SURGICAL HISTORY: Please see HPI above. Significant for laparoscopic appe ndectomy for perforated appendicitis. Otherwise, no major medical issues, surgeries or hospitalizat ions. MEDICATIONS: No regular home medicines. ALLERGIES: No known drug allergies. BODY AFTER ALLERGIES: SOCIAL HISTORY: The patient's mother drove her to the office today. She has a 9 and a 12-year old at home. She denies tobacco use. FAMILY HISTORY: Noncontributory. REVIEW OF SYSTEMS: Significant for abdominal pain, please see HPI. PHYSICAL EXAMINATION: GENERAL: Reveals a 46-year-old female, alert and oriented x3, and in no acut e distress. Of note, earlier today in the office, she was extremely tearful and unable to stand up straight. HEENT: Mucous membranes moist. Normocephalic, atraumatic. No scleral icterus. PULMONA RY: Clear to auscultation bilaterally. CARDIAC: Regular rate and rhythm. ABDOMEN: Exam prior to pain medicine administration was significant for right and left lower quadrant abdominal tenderness with guarding. No rigidity. Incisions clean, dry, and intact without erythema. GENITAL: [place]. EXTREMITIES: Warm and dry without edema. IMPRESSION: This is a 46-year-old female with lower abdominal pain of unknown etiology, status post perforated appendectomy x3 weeks. PLAN: We will go ahead and get a pelvic ultrasound to further evaluate her ovaries. I had a high s uspicion for an abdominal abscess but this is not seen on her imaging. We will admit her overnight for observation and support her with pain medicines and IV fluids as needed. I think it is okay to start her on a clear liquid diet for now. I have also discussed this with Dr. Easley who agrees, and has seen the patient in the office earlier today, and will likely see her later on this evening. /[id number]/MODL
[2017-01-19 17:10] LABS: COLOR YELLOW; LEUKOCYTE ESTERASE,URINE NEGATIVE (NEGATIVE); NITRITE,URINE NEGATIVE (NEGATIVE)
[2017-01-20 07:39] VITALS: BP 99/55; PULSE 56; TEMP 98.1; O2SAT 98
--- NOTE | 2017-01-20 08:31 | SOAPPROG ---
SOAP Progress Note Assessment/Plan: Assessment: s/p lap appy readmitted for intense pain negative ct and labs wnl regular diet dc home S: Feeling much improved Plan: 01/20/17 08:30 Objective: Vital Signs Temp Pulse Resp BP Pulse Ox 36.7 C 56 L 16 99/55 L 98 01/20/17 07:37 01/20/17 07:37 01/20/17 07:37 01/20/17 07:37 01/20/17 07:37 01/19/17 01/20/17 01/21/17 05:59 05:59 05:59 Intake Total 1000 Balance 1000 Physical Exam - Physical Exam General Appearance: WD/WN, alert, no apparent distress EENT: PERRL/EOMI, normal ENT inspection Respiratory: chest non-tender, lungs clear Cardiac/Chest: regular rate, rhythm Abdomen: normal bowel sounds, non-tender, soft ICD10 Worksheet Patient Problems: Problems Problem Status Onset Abdominal pain Acute Acute appendicitis Acute
== END 2017-01-20 10:20 | disposition home or self-care (01) ==
LOC: F3E 17:29
PROVIDERS: ADMIT Surgery; ATTEND Surgery
DX: R10.31 Right lower quadrant pain (principal); Z90.49 Acquired absence of other specified parts of digestive tract; D25.9 Leiomyoma of uterus, unspecified; N83.202 Unspecified ovarian cyst, left side
CPT/HCPCS: 74177; 76856; 96361; 96374; 96375; 99285; G0378; 82947-QW; J1170; J2405; Q9967